=== PATIENT | female | born 1945 | race Caucasian/White ===

== ENCOUNTER 2017-02-20 09:36 | Day surgery (SDC) | payer BC ==
--- NOTE | ~2017-02-20 | EGD ---
EGD REPORT [facility] [address] [place] [address] NAME: FOREST CAZARES : [birth year] STATUS : REG [facility]#: [id number] AGE: 71 ADM/REG DATE : 02/20/17 MR#: [id number] REPORT SERV DATE: 02/20/17 DICTATED BY: DATE: REPORT STATUS : Draft TRANSCRIBED BY: [employer] DATE: 02/20/17 [facility] Patient Name: Forest Cazares Date of : 1945 Attending MD: SONJA TRAN, Procedure Date No Time: 02/20/2017 Procedure: Upper EUS Indications: Gastric mucosal mass/polyp found on endoscopy Referring MD: ISABEL IQBAL III, MD Medicines: Monitored Anesthesia Care Complications: No immediate complications. Estimated blood loss: None. Procedure: Pre-Anesthesia Assessment: - ASA Grade Assessment: III - A patient with severe systemic disease. After obtaining informed consent, the endoscope was passed under direct vision. Throughout the procedure, the patient's blood pressure, pulse, and oxygen saturations were monitored continuously. The Endoscope was introduced through the mouth, and advanced to the second part of duodenum. The GIF IT [id number] was introduced through the mouth, and advanced to the second part of duodenum. Findings: Endoscopic Finding : The examined esophagus was endoscopically normal. 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 The exam of the stomach was otherwise normal. The examined duodenum was endoscopically normal. Endosonographic Finding : Endosonographic images of the stomach were unremarkable. No masses and no wall thickening were identified. No lymphadenopathy seen. There was no sign of significant endosonographic abnormality in the examined duodenum. There was no sign of significant endosonographic abnormality in the entire pancreas. The pancreas was well visualized, the pancreatic duct was well visualized from ampulla to tail, the pancreatic duct was regular in contour. Multiple stones were visualized endosonographically in the gallbladder body. There was no sign of significant endosonographic abnormality in the common bile duct. EGD REPORT [place] [id number] [facility] [place]. [address] NAME: FOREST CAZARES : [birth year] STATUS : REG [facility]#: [id number] AGE: 71 ADM/REG DATE : 02/20/17 MR#: [id number] REPORT SERV DATE: 02/20/17 DICTATED BY: DATE: REPORT STATUS : Draft TRANSCRIBED BY: [employer] DATE: 02/20/17 Impression: - Normal esophagus. - A gastric bypass was found. - Normal examined duodenum. - Endosonographic images of the stomach were unremarkable. - There was no sign of significant pathology in the examined duodenum. - There was no sign of significant pathology in the entire pancreas. - Multiple stones were visualized endosonographically in the gallbladder body. - There was no sign of significant pathology in the common bile duct. Recommendation: - Return to previous diet. - Continue present medications. - Return to referring physician. Procedure Code(s): --- Professional --- 77347, Esophagogastroduodenoscopy, flexible, transoral; with endoscopic ultrasound examination, including the esophagus, stomach, and either the duodenum or a surgically altered stomach where the jejunum is examined distal to the anastomosis Diagnosis Code(s): --- Professional --- K80.20, Calculus of gallbladder without cholecystitis without obstruction Z98.84, Bariatric surgery status K31.9, Disease of stomach and duodenum, unspecified CPT copyright 2013 [employer]. All rights reserved. The codes documented in this report are preliminary and upon medical record coder review may be revised to meet current compliance requirements. SONJA TRAN, 02/20/2017 11:39 AM Number of Addenda: 0 Note Initiated On: 02/20/2017 11:05 AM Scope Withdrawal Time 0 hours 0 minutes 0 seconds [address] [place] [address]
[~2017-02-20 09:36] MED LIST: ACTOS30 PO; AMARYL4 PO; AMIT25 PO; AMIT50 PO; APRES25 PO; ARMOUR THYRO30 MG PO; ARMOUR THYRO60 MG PO; ASAB PO; ATEN25 PO; CARD60 PO; CATAPRES3 TOP; CENTRUM PO; COREG12 PO; COREG25 PO; ELIQUIS 5 MG TAB5 MG PO; FERROUS SULF325 M1 PO; FORTAMET500 MG PO; GLUCOPHXR PO; GLUCPH PO; HORMONE COMPOUND TOP; HYDROCHLOROT25 MG PO; INTRAOCULAR EYE INJ IJ; KLOR-CON 1010 MEQ PO; L20 PO; L40 PO; LEVEMFLXPN SC; LEVEMIR SC; LIPITOR80 MG PO; MAGNESIUM; MAGNESIUM PO; MULTIPLE VIT PO; MULTIVIT/MIN PO; NEUR300 PO; NEUR600 PO; NORV5 PO; NOVOLOG SC; PLAVIX PO; STRESS600T PO; TEARS PURE OPH; TYLENOL ARTH650 MG PO; VICTOZA18 MG/3 ML SC; VITA10 PO; VITAMIN D1000 UNI1 PO; VITAMIN D31000 UNIT PO; ZINC; ZOL50 PO; [UNRECOGNIZED DRUG - REMARK] OPH
[2017-02-20 11:19] LABS: CALCIUM, SERUM 8.4 MG/DL (8.5-10.4); CHLORIDE, SERUM 106 MMOL/L (96-112); CO2 (CARBON DIOXIDE) 26 MMOL/L (24-34); CREATININE 1.47 MG/DL (0.55-1.02); GFR AFRICAN AMERICAN 42 ML/MIN (>=60); GFR NON AFRICAN AMERICAN 36 ML/MIN (>=60); GLUCOSE, SERUM 130 MG/DL (60-99); SODIUM, SERUM 144 MMOL/L (135-148)
[2017-02-20 11:21] LABS: BUN (BLOOD UREA NITROGEN) 35 MG/DL (6-23)
== END 2017-02-20 23:59 | disposition home or self-care (01) ==
LOC: DMU 09:36
PROVIDERS: Anesthesiology; Internal Medicine Gastroenterology
PROC: 0DJ08ZZ Inspection of Upper Intestinal Tract, Via Natural or Artificial Opening Endoscopic (ICD-10-PCS; principal; 2017-02-20 10:30)
DX: K80.20 Calculus of gallbladder without cholecystitis without obstruction (principal); K31.9 Disease of stomach and duodenum, unspecified; Z98.84 Bariatric surgery status; E66.9 Obesity, unspecified; E78.5 Hyperlipidemia, unspecified; E11.9 Type 2 diabetes mellitus without complications; I25.10 Atherosclerotic heart disease of native coronary artery without angina pectoris; I48.91 Unspecified atrial fibrillation; E11.22 Type 2 diabetes mellitus with diabetic chronic kidney disease; I12.9 Hypertensive chronic kidney disease with stage 1 through stage 4 chronic kidney disease, or unspecified chronic kidney disease; N18.3 Chronic kidney disease, stage 3 (moderate)
CPT/HCPCS: 80048